=== PATIENT | male | born 1955 | race Caucasian/White ===

== ENCOUNTER 2023-03-21 09:40 | Outpatient (AMB) | payer MEDICARE, OTHER, SELFPAY ==
--- NOTE | 2023-03-21 11:26 | AM.OFFWIN_ITS ---
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 Patient is complaining of progressive pain over the right shoulder. He plays golf on a regular basis. He has noticed pain in the right shoulder over the past 2 weeks in now is unable to lift his arm over the shoulder. Pain is dull even when he is not using his arm. No fall or injury prior to the onset of symptoms. [facility] Social History Patient Tobacco Use Status: Never used Tobacco Physical Exam Vital Signs: Last Vital Signs Temp 97.8 F 03/21/23 11:36 Pulse 66 03/21/23 11:36 BP 130/80 03/21/23 11:36 Pulse Ox 97 03/21/23 11:36 Oxygen Delivery Method Room Air 03/21/23 11:36 Extrem Other: Right shoulder: No AC joint tenderness. Range of motion: Unable to abduct arm greater than 90 degrees. Full adduction. Pain on internal and external rot ation. Assessment & Plan Assessment & Plan (1) Right shoulder strain: Code(s): S46.911A - Strain of unspecified muscle, fascia and tendon at shoulder and upper arm level, right arm, initial encounter Plan X-ray images show loose bodies at the AC joint and DJD. Arm sling provided and meloxicam added to the regimen. If symptoms do not improve, patient was advised to follow-up with his primary care for a possible steroid injection. Orders: Orders XR shoulder RT min 2V Today S43.401A - Unspecified sprain of right shoulder joint, initial encounter Medications: New meloxicam 15 mg PO DAILY 14 tabs 0RF Coding Level of Care Code New Pt Level 4 (88518) Diagnoses Right shoulder strain S46.911A
[2023-03-21 11:36] VITALS: BP 130/80; PULSE 66; TEMP 36.6; O2SAT 97
== END 2023-03-21 17:00 ==
PROVIDERS: Visit Provider Internal Medicine
DX: S46.911A Strain of unspecified muscle, fascia and tendon at shoulder and upper arm level, right arm, initial encounter (principal)
CPT/HCPCS: 99204

== ENCOUNTER 2023-03-21 12:00 | Outpatient (REF) | payer MEDICARE, OTHER, SELFPAY ==
--- NOTE | ~2023-03-21 | XR_ITS ---
EXAMINATION: XR SHOULDER, RIGHT CLINICAL INFORMATION: Shoulder sprain COMPARISON: None available. TECHNIQUE: AP external rotation, Grashey, scapular Y views of the right shoulder. FINDINGS: No acute fracture or subluxation is evident. Calcification is evident superior to the humeral head, most likely an intra-articular calcified loose bodies. Mild glenohumeral degenerative changes are noted. XR/XR shoulder RT min 2V IMPRESSION: 1. Probable intra-articular loose bodies within the shoulder joint. 2. Mild glenohumeral degenerative changes.
== END 2023-03-21 12:01 | disposition home or self-care (01) ==
LOC: HO.HMGCX 12:00
PROVIDERS: PCP Internal Medicine; Visit Provider Internal Medicine
DX: S43.401A Unspecified sprain of right shoulder joint, initial encounter (principal); X58.XXXA Exposure to other specified factors, initial encounter; Y93.9 Activity, unspecified; Y92.9 Unspecified place or not applicable; Y99.9 Unspecified external cause status
CPT/HCPCS: 73030

== ENCOUNTER 2023-07-06 08:56 | Outpatient (REF) | payer MEDICARE, SELFPAY ==
[2023-07-06 11:37] LABS: MANUAL DIFF FLAG NO
[2023-07-06 11:48] LABS: Anion Gap 15 (12-20); Blood Urea Nitrogen 17 mg/dL (9-16); Calcium 10.3 mg/dL (8.4-10.2); Carbon Dioxide 26 mmol/L (22-29); Chloride 107 mmol/L (96-108); Estimated Glomerular Filt Rate > 60; Glucose Random 133 mg/dL (60-115); Potassium 4.7 mmol/L (3.3-5.1); Sodium 143 mmol/L (135-145)
[2023-07-06 11:51] LABS: Partial Thromboplastin Time 33.3 SEC (26.0-36.8)
[2023-07-06 11:59] LABS: Basophils Percent Auto 0.6 % (0-2); Eosinophils Absolute Auto 0.1 X10*3/uL (0.0-0.4); Eosinophils Percent Auto 2.5 % (0-4); Hematocrit 44.2 % (42.0-52.0); Imm Gran Abs Auto 0.01 X10*3/uL (0.00-0.03); Imm Gran Pct Auto 0.2 % (0.0-0.4); Lymphocytes Absolute Auto 1.7 X10*3/uL (1.2-4.9); Mean Corpuscular HGB Conc 33.9 g/dl (31.0-36.0); Mean Corpuscular Hemoglobin 30.8 pg (27.0-33.0); Mean Corpuscular Volume 90.8 fL (80.0-98.0); Mean Platelet Volume 11.3 fL (9.4-12.4); Monocytes Absolute Auto 0.3 X10*3/uL (0.1-1.2); Neutrophils Absolute Auto 2.6 x10*3/uL (2.0-8.3); Neutrophils Percent Auto 54.7 % (45-73); Platelet Count 229 X10*3/uL (160-400); Red Blood Count 4.87 X10*6/uL (4.60-5.80); Red Cell Distribution Width 13.2 % (11.0-16.0); White Blood Count 4.8 X10*3/uL (4.8-10.8)
== END 2023-07-06 08:57 | disposition home or self-care (01) ==
LOC: HO.HMGCLDS 08:56
PROVIDERS: PCP Internal Medicine; Visit Provider Physician Assistant
DX: I10 Essential (primary) hypertension (principal); I44.2 Atrioventricular block, complete; Z45.010 Encounter for checking and testing of cardiac pacemaker pulse generator [battery]
CPT/HCPCS: 36415; 80048; 85025; 85730